=== PATIENT | female | born 1970 | race Caucasian/White ===

== ENCOUNTER → 2016-11-15 | Outpatient (CLI) | payer OTHER ==
[~2016-11-15] MED LIST: ALBUTEROL17 GM INH; ANTIVERT PO; CIPRO PO; HYCODAN60 ML 5MG/ PO; MIRALAX255 GM PO; PHENERGAN PO; PYRIDIUM PO; ZOFRAN PO
--- NOTE | ~2016-11-15 | MR18 ---
[facility] A Service of [facility] RADIOLOGY TEXT RESULTS PATIENT: AALIYAH BRADLEY LOCATION: [facility] : 74 UNIT #: [id number] AGE: [address]: Arthur Cantrell MD SEX: F ORDER DR: [id number] [place] [id number] MR#: [id number] Acc #: [id number] NAME: AALIYAH BRADLEY. : 1970 SEX: F STUDY DATE/TIME: 11/15/2016 17:25 UNIT: [facility] ROOM: STUDY DESCRIPTION: MR Brain Wo Contrast Attending Physician: Arthur Cantrell M.D. Referring Physician: Arthur Cantrell M.D. Ordering Physician: Arthur Cantrell M.D. Primary Care Physician: Yung Acevedo M.D. MRI CENTER REPORT This report is preliminary unless electronic signature is present. EXAM Brain MR without contrast 11/15/2016 PROCEDURE Routine unenhanced brain MRI. HISTORY Headache and slurred speech, with dizziness for 3 weeks, hand weakness, dropping things, inability to complete sentences. FINDINGS The brain is structurally normal and brain parenchymal signal is within normal limits. There is some slight periventricular T2 and FLAIR signal change of doubtful significance. There is no mass or hydrocephalus or extraaxial fluid collection. There is no restricted diffusion. The brain is structurally normal and normal flow voids are seen in the cerebral vessels. Bone marrow signal is normal. IMPRESSION Minimal periventricular white matter change of doubtful clinical significance. Otherwise normal brain MRI without contrast. Dictated by... Dieter Villarreal M.D. THIS IS AN ELECTRONICALLY VERIFIED REPORT Dieter Villarreal M.D. at 11/17/2016 4:51 PM LEONARDA/madhuri [facility] A Service of [facility] RADIOLOGY TEXT RESULTS PATIENT: AALIYAH BRADLEY LOCATION: [facility] : 74 UNIT #: [id number] AGE: [address]: Arthur Cantrell MD SEX: F ORDER DR: TD: 11/17/2016 14:25 JOB #: [id number] MRI CENTER REPORT Page 1 of 1
== END | disposition home or self-care (01) ==
LOC: SMRI 16:14
DX: R51 Headache (principal)
CPT/HCPCS: 70551